=== PATIENT | male | born 1965 | race Caucasian/White ===

== ENCOUNTER → 2024-12-24 | Outpatient (CLI) | payer OTHER ==
[~2024-12-24] MED LIST: AMOXICILLIN250 MG PO; BIAXIN250 MG PO; NKHM; PREVACID30 M1 PO
== END | disposition home or self-care (01) ==
LOC: ORTHO 08:56
PROVIDERS: ATTEND Orthopaedic Surgery
DX: M19.011 Primary osteoarthritis, right shoulder (principal); M25.511 Pain in right shoulder